=== PATIENT | female | born 1970 | race Caucasian/White ===

== ENCOUNTER → 2021-07-26 | Day surgery (SDC) | payer OTHER | END | disposition home or self-care (01) | LOC: JRADUS-SUR 10:57 → EDSTATUS 11:00 | PROVIDERS: ATTEND Internal Medicine | PROC: 07D53ZX Extraction of Right Axillary Lymphatic, Percutaneous Approach, Diagnostic (ICD-10-PCS; principal; 2021-07-26) | DX: R94.8 Abnormal results of function studies of other organs and systems (principal) | CPT/HCPCS: 19083; 76642-TC-RT ==

== ENCOUNTER → 2021-08-01 | Day surgery (SDC) | payer OTHER | END | disposition home or self-care (01) | LOC: FRADUS-SUR 08:35 | PROVIDERS: ATTEND Internal Medicine | PROC: 0HBT3ZX Excision of Right Breast, Percutaneous Approach, Diagnostic (ICD-10-PCS; principal; 2021-08-01) | DX: C50.811 Malignant neoplasm of overlapping sites of right female breast (principal); Z17.0 Estrogen receptor positive status [ER+]; N63.10 Unspecified lump in the right breast, unspecified quadrant | CPT/HCPCS: 19085; 77065-TC; 88305-TC; 88342-TC; A4648; A9579; C1887 ==

== ENCOUNTER → 2021-08-16 | Day surgery (SDC) | payer OTHER | END | disposition home or self-care (01) | LOC: JRADUS-SUR 09:13 | PROVIDERS: ATTEND Physician Assistant | PROC: 07B53ZX Excision of Right Axillary Lymphatic, Percutaneous Approach, Diagnostic (ICD-10-PCS; principal; 2021-08-16) | DX: D05.11 Intraductal carcinoma in situ of right breast (principal); D24.2 Benign neoplasm of left breast; D36.0 Benign neoplasm of lymph nodes | CPT/HCPCS: 19083; 19084; 76641-TC-RT; 87899; 88305-TC; A4648 ==